=== PATIENT | male | born 1955 | race American Indian/Alaskan Native ===

== ENCOUNTER 2018-10-02 18:07 | Emergency (ER) | payer MEDICARE, MEDICAID ==
[2018-10-02 18:08] VITALS: BMI 19.3
[2018-10-02 18:19] VITALS: PULSE 94; TEMP 97.3; O2SAT 100
--- NOTE | 2018-10-02 18:27 | C.PDOC ---
History Of Present Illness 63 year old male presents to the emergency department with complaints of intermittent epistaxis from the left nostril for the last two weeks. Patient is homeless and an alcohol abuser. Patient denies nose trauma or picking his nose. - HPI Time Seen by Provider: 10/02/18 18:20 Chief Complaint (Nursing): Trauma History Per: Patient History/Exam Limitations: no limitations Onset/Duration Of Symptoms: Other (few weeks) Past Medical History Reviewed: Historical Data, Nursing Documentation, Vital Signs Vital Signs: Last Vital Signs Temp 97.3 F L 10/02/18 18:08 Pulse 94 H 10/02/18 18:08 Resp BP 186/87 H 10/02/18 18:08 Pulse Ox 100 10/02/18 18:08 - Medical History PMH: Anxiety Denies: Chronic Kidney Disease Surgical History: No Surg Hx Family History: States: Unknown Family Hx - Social History Hx Alcohol Use: Yes (Formerly) Hx Substance Use: No - Immunization History Hx Tetanus Toxoid Vaccination: No Hx Influenza Vaccination: No Hx Pneumococcal Vaccination: No Review Of Systems Except As Marked, All Systems Reviewed And Found Negative. Constitutional: Negative for: Fever, Chills ENT: Positive for: Nose Discharge (epistaxis) Respiratory: Negative for: Cough, Shortness of Breath Gastrointestinal: Negative for: Nausea, Vomiting, Diarrhea Neurological: Negative for: Weakness, Numbness Physical Exam - Physical Exam Appears: Non-toxic, No Acute Distress Skin: Normal Color, Warm, Dry Head: Atraumatic, Normacephalic Eye(s): bilateral: Normal Inspection, PERRL, EOMI Ear(s): Bilateral: Normal Nose: Other (dry, crusted blood noted to the medial aspect of the left nares, no active bleeding) Oral Mucosa: Moist, Other (alcohol on breath) Neck: Normal, Supple Chest: Symmetrical, No Tenderness Cardiovascular: Rhythm Regular, No Murmur Respiratory: Normal Breath Sounds, No Rales, No Rhonchi, No Wheezing Gastrointestinal/Abdominal: Soft, No Tenderness, No Guarding, No Rebound Extremity: Normal ROM Neurological/Psych: Oriented x3 ED Course And Treatment O2 Sat by Pulse Oximetry: 100 (RA) Pulse Ox Interpretation: Normal Medical Decision Making Medical Decision Making: occasional chronic nose bleeds + elev bp persistent alcohol abuse no nose trauma today stable for d/c Plan: Vitamin A and D Ointment 1ea TOP Disposition Doctor Will See Patient In The: Office Counseled Patient/Family Regarding: Studies Performed, Diagnosis - Disposition Referrals: Alcoholics Anonymous [Outside] [facility] [Outside] [facility] [Outside] [facility] [Outside] [facility] [Outside] Disposition: HOME/ ROUTINE Disposition Time: 18:27 Condition: GOOD Additional Instructions: nose bleeds: gently pinch together the nostrils and hold for 5 mins to stop nose bleeds Hypertension: may be related to your alcohol abuse Clinic follow-up for BP meds as needed Alcohol abuse Seek AA Seek Detox info given Instructions: Nosebleeds, Alcohol Use - When Is Drinking a Problem? Forms: [facility] (Greek) - Clinical Impression Clinical Impression: Epistaxis, recurrent - Scribe Statement The provider has reviewed the documentation as recorded by the Scribe (Sesar Paul) Provider Attestation: All medical record entries made by the Scribe were at my direction and personally dictated by me. I have reviewed the chart and agree that the record accurately reflects my personal performance of the history, physical exam, medical decision making, and the department course for this patient. I have also personally directed, reviewed, and agree with the discharge instructions and disposition.
[2018-10-02] MEDS ORDERED: Vitamins A & D Oint UD Foilpak TOP ONE (18:32)
[2018-10-02] MEDS ORDERED: Vitamins A & D Oint UD Foilpak ONE (18:37)
[2018-10-02 18:38] VITALS: BP 168/96
== END 2018-10-02 18:37 | disposition home or self-care (01) ==
LOC: C.ER 18:07
DX: R04.0 Epistaxis (principal); Z59.0 Homelessness